=== PATIENT | female | born 1950 | race Caucasian/White ===

== ENCOUNTER 2016-12-17 | Outpatient (CLI) | payer MEDICARE, OTHER | END 2016-12-17 14:31 | disposition home or self-care (01) ==

== ENCOUNTER 2017-01-13 13:32 | Outpatient (CLI) | payer MEDICARE, OTHER | END 2017-01-13 13:33 | disposition home or self-care (01) | DX: Z51.5 Encounter for palliative care (principal); G89.3 Neoplasm related pain (acute) (chronic); R33.9 Retention of urine, unspecified; F33.9 Major depressive disorder, recurrent, unspecified; R53.83 Other fatigue; C21.0 Malignant neoplasm of anus, unspecified; C78.7 Secondary malignant neoplasm of liver and intrahepatic bile duct; C78.00 Secondary malignant neoplasm of unspecified lung; J01.90 Acute sinusitis, unspecified; R11.0 Nausea; R19.7 Diarrhea, unspecified; R06.02 Shortness of breath; F41.9 Anxiety disorder, unspecified; E03.9 Hypothyroidism, unspecified ==

== ENCOUNTER 2017-01-20 12:00 | Outpatient (CLI) | payer MEDICARE, OTHER | END 2017-01-20 12:01 | disposition home or self-care (01) | DX: Z51.5 Encounter for palliative care (principal); G89.3 Neoplasm related pain (acute) (chronic); K21.9 Gastro-esophageal reflux disease without esophagitis; R33.9 Retention of urine, unspecified; F32.9 Major depressive disorder, single episode, unspecified; R53.83 Other fatigue; C21.0 Malignant neoplasm of anus, unspecified; C78.7 Secondary malignant neoplasm of liver and intrahepatic bile duct; C78.00 Secondary malignant neoplasm of unspecified lung; C79.51 Secondary malignant neoplasm of bone; Z79.891 Long term (current) use of opiate analgesic; Z79.899 Other long term (current) drug therapy; E03.9 Hypothyroidism, unspecified; M19.90 Unspecified osteoarthritis, unspecified site; M54.30 Sciatica, unspecified side; R19.7 Diarrhea, unspecified ==

== ENCOUNTER 2017-01-27 14:15 | Outpatient (CLI) | payer MEDICARE, OTHER | END 2017-01-27 14:16 | disposition home or self-care (01) | DX: Z51.5 Encounter for palliative care (principal); G89.3 Neoplasm related pain (acute) (chronic); C21.0 Malignant neoplasm of anus, unspecified; C78.7 Secondary malignant neoplasm of liver and intrahepatic bile duct; C78.00 Secondary malignant neoplasm of unspecified lung; C79.51 Secondary malignant neoplasm of bone; M54.30 Sciatica, unspecified side; R33.9 Retention of urine, unspecified; F32.9 Major depressive disorder, single episode, unspecified; M48.07 Spinal stenosis, lumbosacral region; Z79.891 Long term (current) use of opiate analgesic; Z79.899 Other long term (current) drug therapy ==

== ENCOUNTER 2017-02-17 14:00 | Outpatient (CLI) | payer MEDICARE, OTHER | END 2017-02-17 14:01 | disposition home or self-care (01) | DX: Z51.5 Encounter for palliative care (principal); M54.9 Dorsalgia, unspecified; M84.48XD Pathological fracture, other site, subsequent encounter for fracture with routine healing; R33.9 Retention of urine, unspecified; F32.9 Major depressive disorder, single episode, unspecified; C21.0 Malignant neoplasm of anus, unspecified; C78.7 Secondary malignant neoplasm of liver and intrahepatic bile duct; C78.00 Secondary malignant neoplasm of unspecified lung; C79.51 Secondary malignant neoplasm of bone; Z79.891 Long term (current) use of opiate analgesic; R19.7 Diarrhea, unspecified; R53.83 Other fatigue; F41.9 Anxiety disorder, unspecified; M62.81 Muscle weakness (generalized); R42 Dizziness and giddiness; R41.3 Other amnesia; G62.0 Drug-induced polyneuropathy; Z79.899 Other long term (current) drug therapy; E03.9 Hypothyroidism, unspecified ==

== ENCOUNTER 2017-03-10 13:24 | Outpatient (CLI) | payer MEDICARE, OTHER ==
--- NOTE | 2017-03-26 22:43 | CONSULTATION NOTE ---
DATE OF CONSULTATION: 03/10/2017 00:00:00 REQUESTING PROVIDER: Dr. Bashir Roblero. TOPIC: Followup palliative care consult. Thank you, Dr. Roblero, for asking the palliative care consult service to be involved in the care of yo ur patient. I am seeing her in support for pain and symptom management and transitions of care. 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 She is currently receivi ng carboplatin and Taxol, for which she has had to have modified because of her ongoing pancytopenia. Today, she actually presents with a WBC of 1.8, neutrophil count of 1.1, RBCs 2.7, hemoglobin 9.3, a nd hematocrit 26.8. She does complain of some excessive fatigue. She reports she still had difficulty tolerating treatment. It lasted about 3-4 days and then started to feel a little bit better. She did go into town and was very active actually for the last several days and with some increased breathle ssness and shortness of breath with activity. She did need to rest quite frequently, was only able to go out once, which was somewhat disappointing to her. I did discuss this is a possibility that this may be a normal for her. She has had some intermittent nausea, some intermittent diarrhea for which s he takes Imodium and does end up with some pain and cramping and gaseous discomfort. SYMPTOM BURDEN: She does continue with some intermittent back pain, though this has been much better managed with the meloxicam 7.5 mg b.i.d. She reports she had forgotten to take it for a few days and noticed a significant difference. She has used intermittent oxycodone and she was wondering though if she has some pruritus this last time with that. Fatigue has been her most pressing symptom. She has tried to pace herself. When she has a good day, she is getting out. She has had poor appetite, though she has been weight neutral. She continues to eat. Shortness of breath is noted with increased activ ity. She is taking short walks. She does report intermittent depression, though it does not stay pers istent. Some anxiety with kind of a prolonged period of living with a serious illness and perceives h er quality of life as somewhat fair. BRIEF SOCIAL HISTORY: The patient is , does live alone. Her friends have been supporting her w [employer] rides and transportation. She has been independent in her own the ADLs, so I would put her at a [facility] performance status of 70%. REVIEW OF SYSTEMS ENT: She does still have some intermittent nasal congestion and intermittent vertigo. CARDIOVASCULAR: Denies chest pain. RESPIRATORY: Again, shortness of breath with activity or exertion. GASTROINTESTINAL: Continues with the intermittent diarrhea. Intermittent use of Imodium. She does get some pain and cramping with this. GENITOURINARY: She does cycle some retention symptoms, though denies increased signs or symptoms of U TI or progression. MUSCULOSKELETAL: Has generalized overall muscle aches, weakness. INTEGUMENTARY: Mild alopecia, dryness. NEUROLOGIC: Her baseline vertigo, increasing difficulties with short-term memory issues. 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 PSYCHIATRIC: As noted above. ENDOCRINE: History of hypothyroidism. HEMATOLOGIC/IMMUNOLOGIC: Remains pancytopenic on her current regimen. No recent infections. PHYSICAL EXAMINATION GENERAL APPEARANCE: Does appear quite fatigued, quite pale. EYES: Periorbital edema. ENT: Mucous and membranes are moist, no signs of candidiasis. NECK: Trachea midline, though she does have some limited range of motion. RESPIRATORY: Breath sounds are clear, slightly diminished in the right lower base. CARDIOVASCULAR: Pulse is 80. ABDOMEN: With hyperactive bowel tones, some tenderness, particularly in the right lower quadrant with palpation. No masses appreciated. SKIN: Color pale. EXTREMITIES: Trace pedal edema in her ankles. MEDICATION ALLERGIES: ERYTHROMYCIN BASED OINTMENTS. MEDICATION LIST 1. Potassium chloride extended release 10 mEq 4 tabs daily. 2. Meloxicam 7.5 mg b.i.d. 3. Levothyroxine 50 mcg daily. 4. Oxycodone 5 mg 1-2 tabs q.3h. p.r.n. breakthrough pain. 5. Lorazepam 0.5 mg 1-2 q.6. p.r.n. 6. Hydrochlorothiazide 25 mg half tab daily. 7. Omeprazole 20 mg 1-2 times a day. 8. Ritalin 5 mg 1/2 to 1 tab up to 2 times a day. 9. Ondansetron 8 mg 1 q.8h. 10. Imodium 2-4 mg after each loose stool up to 8 tabs, not to exceed 8 in 24 hours. IMPRESSION: This is a 67-year-old woman with stage IV squamous carcinoma of the anus with metastatic disease to lung, liver, and bone. She still struggles with the sequela of her chemotherapy and pancyt openia. She has had more fatigue. RECOMMENDATIONS/COUNSELING DONE 1. Back pain, multifactorial in origin. She does have a mild associated pathological vertebra jose erik fracture at L1 and has had radiation. She is doing quite well on her meloxicam. Has used oxycodo ne intermittently. The last time she was wondering if she was having more pruritus with that. She tree l let me know if it becomes problematic. We can transition her to hydromorphone. Previously, she had been on hydrocodone and found that too activating. 2. Hypokalemia. She is at 3.6. She is on potassium 4 tablets daily. We did discuss just adding high p otassium foods, reviewed a list of those, as far as improving her diet. 3. Hypocalcemia. She reports she has cut dairy products out of her diet secondary to diarrhea. She is at 8.1. She will go ahead and initiate calcium 1000 mg b.i.d., as well as add some calcium rich food s that she can tolerate better. 4. Depressive symptoms. Again, counseling regarding normalizing her feelings, relationships with kids , current setting of goals, and addressing concerns as far as planning for her future. 5. Advanced care planning. She does have a DPOA, Serena Rhodes, her [id number], , and se rachel ospina is her son, Narayan Rhodes, . She has not followed through as far as aditi miller an appointment with her [id number]. Continues to work at trying to "tidy things up," as she i s moving forward. Does normalize her current feelings as far as waiting for the other shoe to drop" a nd just questions of curiosity as she continues on her journey. TIME SPENT: 45 minutes with greater than 50% of this done in counseling and coordination of care, fol lowup on her labs, symptoms, and anticipatory guidance. JOB #: [id number] EXT JOB #:[id number]
== END 2017-03-10 13:25 | disposition home or self-care (01) ==
LOC: PC 13:24
PROVIDERS: ATTEND Nurse Practitioner Adult Health
DX: Z51.5 Encounter for palliative care (principal); M84.48XD Pathological fracture, other site, subsequent encounter for fracture with routine healing; E87.6 Hypokalemia; E83.51 Hypocalcemia; F32.9 Major depressive disorder, single episode, unspecified; C21.0 Malignant neoplasm of anus, unspecified; C78.7 Secondary malignant neoplasm of liver and intrahepatic bile duct; C78.00 Secondary malignant neoplasm of unspecified lung; C79.51 Secondary malignant neoplasm of bone; D61.818 Other pancytopenia; R53.83 Other fatigue; R06.09 Other forms of dyspnea; R11.0 Nausea; R19.7 Diarrhea, unspecified; E03.9 Hypothyroidism, unspecified; Z79.891 Long term (current) use of opiate analgesic
CPT/HCPCS: 99215

== ENCOUNTER 2017-05-07 13:54 | Outpatient (CLI) | payer MEDICARE, OTHER ==
[2017-05-07] MEDS ORDERED: IOPAMIDOL-300 100 ML VIAL IVP ONE (15:33)
[2017-05-07] MEDS ORDERED: IOPAMIDOL-300 50 ML VIAL PO ONE (15:33)
--- NOTE | 2017-05-09 07:02 | CT Report ---
CONTRAST-ENHANCED CT EXAM OF THE CHEST: 05/07/2017 CLINICAL HISTORY: Patient has stage IV anal cancer to the liver, lungs, and bones. TECHNIQUE: The patient received 100 mL of Isovue-300 as a contrast agent. A CAT scan of the chest w as done at 5 x 5 mm intervals in the axial, coronal, and sagittal reconstruction images. In accordance with CT protocol optimization, one or more of the following dose reduction techniques w ere utilized for this exam: automated exposure control, adjustment of mA and/or KV based on patient size, or use of iterative reconstructive technique. COMPARISON: 02/05/2017 FINDINGS: Mediastinum demonstrates a small right periaortic lymph node having a width of 0.7 cm. Th is is unchanged as compared to preceding exam and is nonspecific. Normal cardiac size is seen with c oronary artery calcification present in the left anterior descending coronary artery and in the right coronary artery. The amount of calcification present is of mild degree. Lung windows do show progression in previously noted metastatic lung nodules. In the right lung, the re are four nodules present. There is a 0.5 cm nodule in the apical posterior segment of the right u pper lobe. There is a 1 x 1 cm nodule in the superior segment of the right lower lobe. There is a 1 .6 x 1.5 cm nodule in the anterior segment of the right lower lobe, and there is a 1.2 cm nodule in t he medial segment of the right middle lobe. The nodule in the superior segment of the right lower lo be and anterior segment of the right lower lobe have increased in size since preceding exam when they measured 0.7 cm and 1.1 cm respectively. The nodule in the right middle lobe is unchanged. In the left lung, the single nodule in the left lower lobe has increased in size and now measures 1.8 x 1.5 cm as compared to 1.6 x 1.0 cm on preceding exam. Metastatic bone disease is once again seen in T12 and L1 vertebral bodies. The T12 vertebral body sh ows a general loss in trabecular pattern and relative radiolucency compared to the other vertebral constantin dies, and there is a large lytic lesion involving the L1 vertebral body. These findings are not sign ificantly changed as compared to preceding exam. IMPRESSION: 1. MILD PROGRESSION IN METASTATIC LUNG DISEASE IS SEEN COMPARED TO PRECEDING EXAM DATED 7. TWO OF THE FOUR NODULES IN THE RIGHT LUNG HAVE SHOWN MILD INCREASE IN SIZE AND THE ONE NODULE PRE SENT IN THE LEFT LUNG HAS SHOWN MILD INCREASE IN SIZE. SEE ABOVE DISCUSSION. 2. NO CHANGE IS DETECTED IN METASTATIC BONE DISEASE WITHIN T12 AND L1. JOB #: [id number] EXT JOB #:[id number]
--- NOTE | 2017-05-09 07:16 | CT Report ---
CT EXAM OF THE ABDOMEN AND PELVIS: 05/07/2017 CLINICAL HISTORY: Patient has anal cancer to liver, lungs, and bones. COMPARISON: 02/05/2017 TECHNIQUE: Patient received 100 mL of Isovue-370 as a contrast agent for both the chest and abdomen/pelvic CT. Axial, coronal, and sagittal reconstruction images were obtained at 5 x 5 mm intervals. In accordance with CT protocol optimization, one or more of the following dose reduction techniques were utilized for this exam: automated exposure control, adjustment of mA and/or KV based on patient size, or use of iterative reconstructive technique. FINDINGS: The liver demonstrates a 3.3 x 2.3 cm hypodense lesion in the left lobe of the liver, and a 4.8 x 3.0 cm hypodense lesion in the anterior aspect of the right lobe of the liver. These liver lesions are unchanged as compared to patient's preceding exam. Spleen is normal. Pancreas shows atrophy. Surgical clips are noted in the edd hepatis related to prior cholecystectomy. Common hepatic, common bile duct are mildly distended. This most likely is a normal variation post cholecystectomy. This distention most likely is nonobstructive. Periaortic and pericaval regions show no significant adenopathy. Adrenal glands appear normal. Kidneys show no significant abnormality. Ureters appear normal. Bladder shows some mild nonspecific wall thickening. This most likely is artifactual and produced by its only minimally distended state. The uterus and adnexa show no significant abnormality. Bowel gas pattern demonstrates an equivocal finding in regards to some mild wall thickening along a small section of the posterior aspect of the rectum. This may represent an artifact due to its nondistended state. Recommend clinical correlation. No significant diverticulosis is seen. Small bowel is normal. Bones once again demonstrate a prominent lytic lesion in L1 measuring 3.3 x 2.1 x 3.2 cm. Metastatic disease may be developing in T12, L2, L3, and L4 with relative loss of trabecular pattern in these vertebral bodies. This is also seen in the midline of sacrum. This relative loss of trabecular pattern may be a result of osteoporosis with another possibility being diffuse marrow infiltration. If indicated, other studies may include a PET/CT. No change is detected in this relative osteoporotic appearance since preceding exam dated . IMPRESSION: 1. NO SIGNIFICANT CHANGE IS NOTED COMPARED TO 02/05/2017, WITH STABLE METASTATIC LESIONS NOTED IN THE LIVER AND IN L1. 2. CONTINUED RELATIVE OSTEOPOROTIC TYPE APPEARANCE IS NOTED TO THE T12, L2, L3 , L4 VERTEBRAL BODIES AND ALSO IN THE MIDLINE OF THE SACRUM. THIS MAY REPRESENT TRUE OSTEOPOROSIS OR MARROW INFILTRATION RELATED TO PATIENT'S METASTATIC CANCER. IF INDICATED, ADDITIONAL STUDIES SUCH A PET/CT OR LUMBAR SPINE MRI COULD BE OBTAINED FOR FURTHER EVALUATION. JOB #: [id number] EXT JOB #: [id number] [facility]
== END 2017-05-07 13:55 | disposition home or self-care (01) ==
LOC: DI 13:54
PROVIDERS: ATTEND Internal Medicine Hematology & Oncology
DX: C21.0 Malignant neoplasm of anus, unspecified (principal); C78.7 Secondary malignant neoplasm of liver and intrahepatic bile duct; C78.02 Secondary malignant neoplasm of left lung; C78.01 Secondary malignant neoplasm of right lung; C79.51 Secondary malignant neoplasm of bone
CPT/HCPCS: 71260; 74177

== ENCOUNTER 2017-05-30 14:58 | Outpatient (CLI) | payer MEDICARE, OTHER ==
--- NOTE | 2017-06-01 10:20 | PROVIDER PROGRESS NOTE ---
Palliative Care Follow Up - Referral Referring Provider: Dr. 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 Her original diagnosis was in 12/1014. She has had chemotherapy and radiation, as will as a RFA to liver lesion 08/2015. She was noted to have lung mets 12/2015 with further treatment of second line therapy of carbo/taxol. She received radiation in 2015 to T12-L1 lesion related to increasing pain with some relief, though now is escalating again. Most recent scan show progressive disease noted in lung nodules done 05/07, as well increased concern of marrow infiltration in lumbar region and sacrum. Patient was seen at [facility] by Dr. Dong for joining a clinical trail for nivolumab vs nivolumab plus ipilimuab. She is very frustrated as she cannot join until her platlets are at or above 100,000, they are sitting at 50,000. She has consistently been low, last time she was above when she had a prolonged break for travel in November, of concern is the suggestion of increase bone marrow infiltration. Dr. Dong suggested she pursue nivolumab through other means if no eligible, she is wondering how long to wait. Worried not "doing anything" and the cancer is growing. Social History - Living Situation Living arrangement: At home Living Situation: Alone Support System: Patient has many caring friends, but no caregiver. Her daughter lives in [place] , son and his family [place]. Medications/Allergies - Medications Home Medications: Ambulatory Orders Medication Instructions Recorded Confirmed Levothyroxine [Synthroid] 50 mcg PO DAILY 04/10/15 06/01/17 Omeprazole 20 mg PO DAILY 04/10/15 06/01/17 Loperamide [Imodium] 2 mg PO Q3HR PRN 07/19/15 06/01/17 Ondansetron [Zofran Odt] 8 mg PO Q8H PRN 07/19/15 06/01/17 Lorazepam 1 - 2 tab PO Q6HR 10/24/15 06/01/17 Hydrochlorothiazide 25 mg PO DAILY 12/22/15 06/01/17 Loratadine 10 mg PO DAILY 12/22/15 06/01/17 Potassium Chloride 40 meq PO DAILY 12/22/15 06/01/17 Lidocaine/Prilocain 2.5% Cream 0.5 inch TOP ONCE PRN MDD Prior to 09/02/1606/01 [Emla 2.5% Cream] port access oxyCODONE [Roxicodone] 5 - 10 mg PO Q3HR PRN 10/28/16 06/01/17 Methylphenidate [Ritalin] 2.5 - 5 mg PO DAILY PRN 01/13/17 06/01/17 - Allergies Allergies/Adverse Reactions: Allergies Allergy/AdvReac Type Severity Reaction Status Date / Time erythromycin base Allergy Cramps Verified 12/22/15 03:19 Review of Systems - Constitutional Constitutional: reports: Fatigue, Weight gain - Eyes Eyes: denies: Vision loss - Ears, Nose & Throat Ears, Nose & Throat: reports: Vertigo (unchanged). denies: Hearing loss - Cardiovascular Cariovascular: reports: Decr. exercise tolerance. denies: Chest pain - Respiratory Respiratory: reports: SOB with exertion. denies: Cough, Sputum production, SOB at rest - Gastrointestinal Gastrointestinal: reports: Diarrhea (intermittent, less without chemotherapy), Bloating. denies: Rectal bleeding - Genitourinary Genitourinary: reports: Urgency (occasional), Incontinence (occasional) - Musculoskeletal Musculoskeletal: reports: Back pain - Integumentary Integumentary: reports: Hair changes (hair growing) - Neurological Neurological: reports: Headache (frontal h/a today), Memory problems (describes "chemo fog" no confusion, occ memory issues) - Psychiatric Psychiatric: reports: Depression, Anxiety - Endocrine Endocrine: denies: Intolerance to cold, Intolerance to heat - Hematologic/Lymphatic Hematologic/Lymphatic: reports: Anemia - All Other Systems All Other Systems: reports: Reviewed and negative Physical Examination - Vital Signs Pulse Rate: 71 Respiratory Rate: 18 Blood Pressure: 122/57 - Physical Exam General Appearance: positive: Anxious Eyes Bilateral: positive: Normal inspection ENT: positive: ENT inspection nml Neck: positive: Trachea midline, Stiff neck (limited range of motion, tense and shoulder tension) Respiratory: positive: Breath sounds nml Cardiovascular: positive: Regular rate & rhythm Abdomen: positive: Nml bowel sounds, No distention Skin: positive: Pallor, Dryness Extremities: positive: Full ROM, Pedal edema (slight) Neurologic/Psychiatric: positive: Oriented x3, Depressed mood/affect (tearful regarding the "waiting time" on plts to come up, hoping to get on clinical trial soon) Palliative Care - POLST Patient has POLST: No Pain: Pain worsening, Location (pain in back 03/29; had stopped Meloxicam earlier in week regarding patient's concern for plts; has pain and tension in neck and shoulders; presents today with headache pain (attributes to ritalin- when takes full tab can cause) and intermittent shooting pain from CIPN in feet ; using oxycodone 5 mg 1-2 tabs with some relief), Severity (reports headache pain 04/28) Drowsiness: Moderate (4-6) (reports fatigue has continued; ritalin helps and uses when has to do something; but finds activity tolerance diminishing; worried it is the cancer) Nausea: Mild (1-3) Anxiety: Moderate (4-6) (describes this waiting time and very difficult; interfering with sleep) Dyspnea: Mild (1-3) (mostly induced with activity) Anorexia: Moderate (4-6) Insomnia: Other (up at night to void; difficulty with anxiety going back to sleep) Feelings of wellbeing/Perceived Quality of Life: Worsening (worried about the future; feeling more vulnerable now; has had extended response to most treatments tried) Performance Status: Patient able to attend to ADLs, still driving. Starting to hire help for housekeeping etc. - Palliative Care Discussion: Experiencing some distress in the "waiting time". Hopeful that she will qualify for study. Reviewed study consent, understands side effects may be less than chemotherapy, anxious to get started. Will need liver biopsy once ready to proceed, and to receive her treatments at [facility]. Explored current level of distress, other stressors, and concerns. Hoping for some "more time", feels like she is wasting what she has currently, looked at some ways to mitigate stress and to set some goals. Impression and Recommendations - Palliative Care Impression: This is a afshin 67 year old woman with Stage IV anal cancer and metastatic disease, experiencing increasing symptom burden of pain/fatigue/depression and anxiety. Hoping to qualify for [facility] study, awaiting platelets to increases. Recommendations/Counseling Done: 1. Thrombocytopenia, most likely multifactorial in origin, has run low with ongoing chemotherapy since 12/2014. Now with some concern of bone infiltration on CT scan. Discussed what currently could do, will hold meloxicam though no direct correlation on counts, does have some impact on platelet function as precaution. No evidenced based studies on nutritional supplements, encouraged to focus on good nutrition, and adequate fluids including pomegrant juice. 2. Pain of neoplastic origin. Pain levels in back increasing, had been mitatigated over the last few months with the meloxicam 7.5 mg BID, and intermittent oxycodone mostly noted increased pain in afternoon. Will use ATC oxycodone 5 mg 4-5 times a day, if tolerates will restart Fentanyl 12 mcg patch , had been effective previously before radiation. Encouraged with increased neck and back tension to consider adding massage weekly. 3. Bowel issues. Reports intermittent constipation/diarrhea and increased gas pains. Inst to take simethicone BID, start her miralax 1/2 capful daily to counteract the increase in opioids and to hold if loose stools. 4. Depression. Counseling to normalize current feelings of loss and grief. Encouraged to make arrangements to see grandson, set goal. Iniitating conversation about future care/support. 5. Fatigue. Using Ritalin appropriately, encouraged to use 1/2 tab if headaches and repeat in couple of hours if needed. New Rx provided. 6.Stage Iv Anal cancer with mets. Will follow with Dr. Roblero regarding timing of initiating paperwork for nivolumab if needs to proceed off study. Staff though might take up to 3 weeks. Time Spent: 60 minutes with greater than 50% done in counseling regarding pain/anxiety/ depression and fatigue and anticipatory guidance.
== END 2017-05-30 14:59 | disposition home or self-care (01) ==
LOC: PC 14:58
PROVIDERS: ATTEND Nurse Practitioner Adult Health
DX: Z51.5 Encounter for palliative care (principal); C21.0 Malignant neoplasm of anus, unspecified; G89.3 Neoplasm related pain (acute) (chronic); C78.7 Secondary malignant neoplasm of liver and intrahepatic bile duct; C78.00 Secondary malignant neoplasm of unspecified lung; C79.51 Secondary malignant neoplasm of bone; R40.0 Somnolence; F41.9 Anxiety disorder, unspecified; F32.9 Major depressive disorder, single episode, unspecified; R63.0 Anorexia; D69.6 Thrombocytopenia, unspecified; Z79.891 Long term (current) use of opiate analgesic; K59.00 Constipation, unspecified; R19.7 Diarrhea, unspecified; R53.83 Other fatigue
CPT/HCPCS: 99215

== ENCOUNTER 2017-06-20 14:30 | Outpatient (CLI) | payer MEDICARE, OTHER ==
--- NOTE | 2017-06-20 17:36 | PROVIDER PROGRESS NOTE ---
Palliative Care Follow Up - Referral Referring Provider: Dr. 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 Her original diagnosis was in 12/2014. She has had a RFA to liver lesion 08/2015. She had XRT to T12-L1 region that finished in 09/2016. She was on observation and a chemotherapy break until 11/2016 when progression was noted in the lung. She has been low dose carboplatinum and Taxol, 2 weeks on and one-week off, due to bone marrow depression. Her most recent staging CT of 04/2017 unfortunately showed progression in her lung nodules. She was seen at [facility] to begin a clinical trial, unfortunately, her platelets have not recovered and she has not been a candidate up to this point. Given her anxiety and her continued goal to pursue treatment, she did pursue Opdiva off label (the phan drug in the trial) and started that today. She has been having increasing pain noted mostly her T12- L1 lesion area has needed increasing opioid support for this, she has been having increased fatigue, and pancytopenia. Her other presenting symptoms today is a supraclavicular mass, it appears to be new. It is firm slightly tender and of concern given her underlying disease process. Her pancytopenia with Hgb 9.1/ Hct 25.9/plts 38,000 is impacting her symptomatically at this time. She is more short of breath, with decreased activity tolerance, and feeling tired and occasional dizzyness. Social History - Living Situation Living arrangement: At home Living Situation: Alone Support System: She has two children, daughter in [place], son and his family in [place]. She has many friends but is dependent on herself for decisions and personal care Medications/Allergies - Medications Home Medications: Ambulatory Orders Medication Instructions Recorded Confirmed Levothyroxine [Synthroid] 50 mcg PO DAILY 04/10/15 06/01/17 Omeprazole 20 mg PO DAILY 04/10/15 06/01/17 Loperamide [Imodium] 2 mg PO Q3HR PRN 07/19/15 06/01/17 Ondansetron [Zofran Odt] 8 mg PO Q8H PRN 07/19/15 06/01/17 Lorazepam 0.5 tab PO Q6HR PRN 10/24/15 06/01/17 Hydrochlorothiazide 25 mg PO DAILY 12/22/15 06/01/17 Loratadine 10 mg PO DAILY 12/22/15 06/01/17 Potassium Chloride 40 meq PO DAILY 12/22/15 06/01/17 Lidocaine/Prilocain 2.5% Cream 0.5 inch TOP ONCE PRN MDD Prior to 09/02/1606/01 [Emla 2.5% Cream] port access oxyCODONE [Roxicodone] 5 - 10 mg PO Q4HR PRN 10/28/16 06/20/17 Methylphenidate [Ritalin] 2.5 - 5 mg PO BID MDD May repeat 01/13/17 06/20/17 in 2 hours Polyethylene Glycol 3350 [Miralax] 8.5 gm PO DAILY MDD hold for loose 06/03/17 06/03/17 stool Simethicone [Gas Relief] 80 mg PO BID 06/03/17 06/03/17 Fentanyl [Fentanyl 25mcg patch] 12 mcg TD Q72H 06/20/17 06/20/17 - Allergies Allergies/Adverse Reactions: Allergies Allergy/AdvReac Type Severity Reaction Status Date / Time erythromycin base Allergy Cramps Verified 12/22/15 03:19 Review of Systems - Constitutional Constitutional: reports: Fatigue, Weakness, Poor appetite - Eyes Eyes: reports: Blurred vision (no change from baseline) - Ears, Nose & Throat Ears, Nose & Throat: reports: Nasal congestion (occasional) - Cardiovascular Cariovascular: reports: Lightheadedness, Exertional dyspnea, Decr. exercise tolerance. denies: Chest pain, Edema - Respiratory Respiratory: reports: SOB with exertion. denies: Cough - Gastrointestinal Gastrointestinal: reports: Abdominal pain (describes an episode of "gallbladder " phantom pain; right upper quadrant radiating to epigastric area earlier this week), Constipation (alternating with diarrhea), Diarrhea (usually after eating) , Reflux/heartburn, Bloating ("gas pains" has been mitigated some with the simethacone). denies: Rectal bleeding, Bloody stools - Genitourinary Genitourinary: reports: Other (occasional difficult emptying her bladder) - Musculoskeletal Musculoskeletal: reports: Back pain, Muscle aches, Stiffness - Integumentary Integumentary: reports: Dryness, Other (reports increase bruising when "bumps" self) - Neurological Neurological: reports: General weakness, Headache, Dizziness - Psychiatric Psychiatric: reports: Anxiety (worried about increasing symptom burden) - Endocrine Endocrine: reports: Other (hypothyroidism) - Hematologic/Lymphatic Hematologic/Lymphatic: reports: Anemia, Other (pancytopenia continues to worsen) - All Other Systems All Other Systems: reports: Reviewed and negative Physical Examination - Vital Signs Pulse Rate: 87 Respiratory Rate: 18 Blood Pressure: 120/69 - Physical Exam General Appearance: positive: Anxious Eyes Bilateral: positive: Normal inspection, Conjunctivae nml. negative: No scleral icterus ENT: positive: No signs of dehydration, Other (right clavicale with increase mass/size; slightly tender to palpation; new finding and concern for patient; is fixed not moveable as in a node) Neck: positive: No JVD, Trachea midline, Swelling/bruising (scattered hematoma on left leg;) Respiratory: positive: No respiratory distress Cardiovascular: positive: Regular rate & rhythm Skin: positive: Dryness, Bruising Extremities: positive: Nml appearance, No pedal edema Neurologic/Psychiatric: positive: Oriented x3, Depressed mood/affect (reports very low on energy; spending more time "bonding with the couch") Palliative Care - POLST Patient has POLST: No Pain: Pain worsening, Location (mid thoracic area/lumbar;), Severity ( interfering with sleep/comfort; no exacerbating features; worse in the am; had not notice much improvement with fentanyl 12 mcg; moderate to severe in intensity) Drowsiness: Moderate (4-6) Nausea: Mild (1-3) Anxiety: Moderate (4-6) Dyspnea: Mild (1-3) Anorexia: Mild (1-3) Insomnia: Other (awakening more with pain/anxiety) Constipation: Yes, Opoid induced, Unmanaged (difficulty finding balance with basline diarrhea and now with opioid induced constipation) Feelings of wellbeing/Perceived Quality of Life: Worsening Performance Status: Patient still trying to take some short walks; little energy and SOB with activity; spending more time napping and less active - Palliative Care Discussion: Patient expressing anxiety over changes; starting new treatment today, encouraged to be "doing something"; recognizes decline and now with higher symptom burden having increased anxiety. Results - Lab Results Lab results reviewed: Yes Impression and Recommendations - Palliative Care Impression: This is a afshin 67 year old woman with Stage IV anal cancer with metastatic disease to lung, liver, and bones. Has been on a hiatus for treatment, had been hoping to join [facility] clinical trial of opdiva & opdiva/Yervoy, but pancytopenia has prevented her qualifying. She started the Opdiva today on compassionate use , will get every 2 weeks. She presents with new right supraclavicular mass and increasing pain, worsening fatigue, and anxiety. Recommendations/Counseling Done: 1. Pain of neoplastic origin. Pain levels continue to increase, worsening in lower back area, noted most severe in AM on awakening. Had started Fentanyl 12 mcg this week as instructed but has not decreased oxycodone use of about 6--8 tabs to address ATC. Counseling to add second 12mcg today, will give RX for fentanyl 25 mcg, counseling for safety, if too sedated inst. to remove, inst. to continue with oxycodone for break through pain. Can add back meloxicam 7.5 mg since did not impact platelets. 2. Constipation. Cont. with intermittent constipation/diarrhea. Simethicone has helped some with the gas. Will continue to titrate Miralax. 3. Panctyopenia. All her counts are decreasing, call to Dr. Roblero. not at threshold (though increasing symptoms) to transfuse. Unable to add to current labs, orders for Friday, will have T & C, as well as iron studies. 4. Right clavicular/supraclavicular mass, new. Discussed with oncologist, will evaluate with CT of neck with contrast per request. This will be next week, plan discussed with patient. 5. Fatigue, multifactorial in origin. New rx for ritalin provided, counseling for pacing activities with decreased counts. 6. Depression. Patient discouraged with diminishing quality of life and increased symptom burden. Counseling provided for support/coping and anxiety. Time Spent: 30 minutes with greater than 50% done in counseling for symptom management and coordination of care with oncologist/clinical staff.
== END 2017-06-20 14:31 | disposition home or self-care (01) ==
LOC: PC 14:30
PROVIDERS: ATTEND Nurse Practitioner Adult Health
DX: Z51.5 Encounter for palliative care (principal); G89.3 Neoplasm related pain (acute) (chronic); C21.0 Malignant neoplasm of anus, unspecified; C78.7 Secondary malignant neoplasm of liver and intrahepatic bile duct; C78.00 Secondary malignant neoplasm of unspecified lung; C79.51 Secondary malignant neoplasm of bone; R06.02 Shortness of breath; R53.83 Other fatigue; D61.818 Other pancytopenia; Z79.891 Long term (current) use of opiate analgesic; F41.9 Anxiety disorder, unspecified; F32.9 Major depressive disorder, single episode, unspecified; K59.00 Constipation, unspecified; R19.7 Diarrhea, unspecified
CPT/HCPCS: 99214

== ENCOUNTER 2017-06-25 15:45 | Outpatient (CLI) | payer MEDICARE, OTHER ==
--- NOTE | 2017-06-25 21:49 | PROVIDER PROGRESS NOTE ---
Palliative Care Follow Up - Referral Referring Provider: Dr. 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 She has been having pancytopenia that has continued, and today presents with increase shortness of breath, fatigue, some dizzyness, and feeling poorly. She did have a fever last night 99.7, but no cough/UTI or other than slight chill that resolved. She has swelling at the right clavicle that is of concern to her, tender to palpation, has CT scheduled after visit. She reports her back pain has responded well to the Fentanyl 25 mcg patch with little of oxycodone for breakthrough pain. She just started the Opdiva this last Friday, no untoward effects currently that she noted. She is anxious about her counts, and what to expect in the future as far as her prognosis. Social History - Living Situation Living arrangement: At home Living Situation: Alone Support System: Patient with daughter who just left on vacation for two weeks and son who lives in [facility]. Initiated conversation about identifying caregivers as she becomes more ill and starting to define a plan for EOL as things progress Medications/Allergies - Medications Home Medications: Ambulatory Orders Medication Instructions Recorded Confirmed Levothyroxine [Synthroid] 50 mcg PO DAILY 04/10/15 06/25/17 Omeprazole 20 mg PO DAILY 04/10/15 06/25/17 Loperamide [Imodium] 2 mg PO Q3HR PRN 07/19/15 06/25/17 Ondansetron [Zofran Odt] 8 mg PO Q8H PRN 07/19/15 06/25/17 Lorazepam 0.5 tab PO Q6HR PRN 10/24/15 06/25/17 Hydrochlorothiazide 25 mg PO DAILY 12/22/15 06/25/17 Loratadine 10 mg PO DAILY 12/22/15 06/25/17 Potassium Chloride 40 meq PO DAILY 12/22/15 06/25/17 Lidocaine/Prilocain 2.5% Cream 0.5 inch TOP ONCE PRN MDD Prior to 09/02/1606/25 [Emla 2.5% Cream] port access oxyCODONE [Roxicodone] 5 - 10 mg PO Q4HR PRN 10/28/16 06/25/17 Methylphenidate [Ritalin] 2.5 - 5 mg PO BID MDD May repeat 01/13/17 06/25/17 in 2 hours Polyethylene Glycol 3350 [Miralax] 8.5 gm PO DAILY MDD hold for loose 06/03/17 06/25/17 stool Simethicone [Gas Relief] 80 mg PO BID 06/03/17 06/25/17 Fentanyl [Fentanyl 25mcg patch] 25 each TD Q72H 06/25/17 06/25/17 - Allergies Allergies/Adverse Reactions: Allergies Allergy/AdvReac Type Severity Reaction Status Date / Time erythromycin base Allergy Cramps Verified 12/22/15 03:19 Review of Systems - Constitutional Constitutional: reports: Fatigue, Fever (last night 99.7; resolved this am; slight chills but not sustained; no s/s resp./sinus/uti), Chills - Eyes Eyes: reports: Vision loss - Ears, Nose & Throat Ears, Nose & Throat: reports: Vertigo - Cardiovascular Cariovascular: reports: Lightheadedness, Exertional dyspnea, Decr. exercise tolerance. denies: Chest pain - Respiratory Respiratory: reports: Cough (occasional), SOB at rest, SOB with exertion - Gastrointestinal Gastrointestinal: reports: Nausea, Reflux/heartburn, Bloating, Poor appetite - Genitourinary Genitourinary: reports: Urgency - Musculoskeletal Musculoskeletal: reports: Back pain (better on Fentanyl 25 mcg), Stiffness, Muscle weakness - Integumentary Integumentary: reports: Rash (actually increased petechai LE extremeties), Dryness, Hair changes (thinning alopecia from chemo) - Neurological Neurological: reports: General weakness, Dizziness, Memory problems - Psychiatric Psychiatric: reports: Depression (very tearful and concerned; feeling vulnerable ), Anxiety - Endocrine Endocrine: reports: Intolerance to cold - Hematologic/Lymphatic Hematologic/Lymphatic: reports: Anemia (counts continue to drop; just started on Opdiva Friday; HCT 23.7; plts 32,000) - All Other Systems All Other Systems: reports: Reviewed and negative Physical Examination - Vital Signs Temperature: 36.8 C Pulse Rate: 69 Respiratory Rate: 20 Blood Pressure: 127/63 - Physical Exam General Appearance: positive: Anxious Eyes Bilateral: positive: Conjunctivae nml, No scleral icterus ENT: positive: ENT inspection nml Neck: positive: Trachea midline, Swelling/bruising (swelling and tenderness over right clavicle area). negative: Lymphadenopathy (R), Lymphadenopathy (L) Respiratory: positive: Breath sounds nml Cardiovascular: positive: Regular rate & rhythm Abdomen: positive: Non-tender, Nml bowel sounds, No distention Skin: positive: Pallor, Dryness, Rash (petechai lower extremities, not noted other places) Extremities: positive: Nml appearance Neurologic/Psychiatric: positive: Oriented x3 Palliative Care - POLST Patient has POLST: No Pain: Pain improved, Location (back: worse in am and late afternoon) Drowsiness: Moderate (4-6), Comment (more fatigue and less energy) Nausea: None Anxiety: Mild (1-3) Dyspnea: Mild (1-3) Anorexia: Mild (1-3) Constipation: Yes, Opoid induced, Managed, Comment (struggles with alternating loose stools) Feelings of wellbeing/Perceived Quality of Life: Worsening Performance Status: Patient perceives less activity tolerance - Palliative Care Discussion: Patient discouraged feeling poorly, starting to consider implications for future planning and needed support. Initiated counseling on options, given [facility] as resource to explore, and agreed to continue to explore in future visits. She is hoping to get more information from Dr. Roblero when sees on Friday to help with planning and addressing concerns. Results - Lab Results Lab results reviewed: Yes Impression and Recommendations - Palliative Care Impression: This is a 67 year old woman with STage IV squamous carcinoma of the anus, with metastatic disease to liver, lung and bones. She presenting with continued decline of counts, now symptomatic with anemia, follow up with Dr. Roblero regarding plans, will go ahead and transfuse 2 units as planned. Recommendations/Counseling Done: 1. Pain of neoplastic origin, Fentanyl 25 mcg patch with better control. Needs new Rx for oxycodone for BTP. 2. Constipation, titrating medications appropriately. 3. Anemia with symptoms, ordered 2 units PRBCs for tomorrow, typed and crossed today, follow up with Dr. Roblero on continued pancytopenia concerns. 4. FUO, now resolved. Reviewed s/s of infection/sepsis to access emergent care. 5. Advanced care planning. Patient needs to define further plans and goals for end of life care, wanting to explore prognosis with oncologist next visit, supportive care provided. Time Spent: 30 minutes with greater than 50% done in counseling and coordination of care for anticipatory guidance and pain.
== END 2017-06-25 15:46 | disposition home or self-care (01) ==
LOC: PC 15:45
PROVIDERS: ATTEND Nurse Practitioner Adult Health
DX: Z51.5 Encounter for palliative care (principal); G89.3 Neoplasm related pain (acute) (chronic); C21.0 Malignant neoplasm of anus, unspecified; C78.7 Secondary malignant neoplasm of liver and intrahepatic bile duct; C78.00 Secondary malignant neoplasm of unspecified lung; C79.51 Secondary malignant neoplasm of bone; Z79.891 Long term (current) use of opiate analgesic; K59.00 Constipation, unspecified; D61.818 Other pancytopenia; R50.9 Fever, unspecified
CPT/HCPCS: 99214

== ENCOUNTER 2017-07-02 14:30 | Outpatient (CLI) | payer MEDICARE, OTHER ==
[2017-07-02 15:28] LABS: BILIRUBIN,URINE NEGATIVE (NEGATIVE)
[2017-07-02 15:38] LABS: UA CHARGE (STRIP ONLY) YES; UR CULTURE IF IND NOT INDICATED
== END 2017-07-02 14:31 | disposition home or self-care (01) ==
LOC: LAB 14:30
PROVIDERS: ATTEND Nurse Practitioner Adult Health
DX: R35.0 Frequency of micturition (principal)
CPT/HCPCS: 81001; 81003; 87086

== ENCOUNTER 2017-07-03 14:57 | Emergency (ER) | payer MEDICARE, OTHER ==
--- NOTE | 2017-07-03 15:47 | ED Physician Documentation ---
History of Present Illness - Stated complaint Stated Complaint: SHAKING,CHILLS - Chief complaint Chief Complaint: General - History obtained from History obtained from: Patient - History of Present Illness Timing: Other (67-year-old woman with anal cancer undergoing treatment, last infusion of the immunologic agent was 2 weeks ago. She has a port in place. For the last 2 weeks she has had shaking chills with low-grade fevers, maximum temperature has been 100.4 that was couple of nights ago. There is no specific infectious symptoms, no urinary complaints, cough, rash.) Review of Systems Ten Systems: 10 systems reviewed and negative Constitutional: reports: Fever, Chills, Fatigue Nose: denies: Rhinorrhea / runny nose, Congestion Throat: denies: Sore throat Cardiac: denies: Chest pain / pressure Respiratory: denies: Dyspnea, Cough GI: denies: Abdominal Pain PD PAST MEDICAL HISTORY - Past Medical History Cardiovascular: High cholesterol Respiratory: None Endocrine/Autoimmune: HyPOthyroidism GI: GERD, Colon polyps, Hemorrhoids : Chronic bladder infection HEENT: None Psych: None Musculoskeletal: Osteoarthritis Derm: None - Past Surgical History Past Surgical History: Yes General: Cholecystectomy - Present Medications Home Medications: Ambulatory Orders Medication Instructions Recorded Confirmed Levothyroxine [Synthroid] 50 mcg PO DAILY 04/10/15 07/03/17 Omeprazole 20 mg PO DAILY 04/10/15 07/03/17 Loperamide [Imodium] 2 mg PO Q3HR PRN 07/19/15 07/03/17 Ondansetron [Zofran Odt] 8 mg PO Q8H PRN 07/19/15 07/03/17 Lorazepam 0.5 tab PO Q6HR PRN 10/24/15 07/03/17 Hydrochlorothiazide 25 mg PO DAILY 12/22/15 07/03/17 Potassium Chloride 40 meq PO DAILY 12/22/15 07/03/17 Lidocaine/Prilocain 2.5% Cream 0.5 inch TOP ONCE PRN MDD Prior to 09/02/1607/03 [Emla 2.5% Cream] port access oxyCODONE [Roxicodone] 5 - 10 mg PO Q4HR PRN 10/28/16 07/03/17 Methylphenidate [Ritalin] 2.5 - 5 mg PO BID MDD May repeat 01/13/17 07/03/17 in 2 hours Polyethylene Glycol 3350 [Miralax] 8.5 gm PO DAILY MDD hold for loose 06/03/17 07/03/17 stool Simethicone [Gas Relief] 80 mg PO BID 06/03/17 07/03/17 Fentanyl [Fentanyl 25mcg patch] 25 each TD Q72H 06/25/17 07/03/17 Levofloxacin [Levaquin] 750 mg PO DAILY #7 tablet 07/03/17 - Allergies Allergies/Adverse Reactions: Allergies Allergy/AdvReac Type Severity Reaction Status Date / Time erythromycin base Allergy Cramps Verified 12/22/15 03:19 - Social History Does the pt smoke?: No Smoking Status: Never smoker Does the pt drink ETOH?: No Does the pt have substance abuse?: No - Immunizations Immunizations are current?: Yes - POLST Patient has POLST: No PD ED PE NORMAL - Vitals Vital signs reviewed: Yes - General General: Alert and oriented X 3, No acute distress - HEENT HEENT: PERRL, EOMI, Pharynx benign - Neck Neck: Supple, no meningeal sign, No bony TTP - Cardiac Cardiac: RRR, No murmur - Respiratory Respiratory: No respiratory distress, Clear bilaterally - Abdomen Abdomen: Non tender - Derm Derm: No rash - Neuro Neuro: Alert and oriented X 3, Normal speech - Psych Psych: Normal mood, Normal affect Results - Vitals Vitals: Vital Signs - 24 hr 07/03/17 07/03/17 15:10 16:57 Temperature 36.9 C 37.5 C Heart Rate 81 Respiratory 16 Rate Blood Pressure 134/75 H O2 Saturation 100 Oxygen O2 Source Room air - Labs Labs: Laboratory Tests 07/03/17 07/03/17 07/03/17 16:14 16:14 16:14 WBC 2.6 L RBC 3.18 L Hgb 10.2 L Hct 30.2 L MCV 94.9 MCH 32.1 H MCHC 33.8 RDW 14.7 Plt Count 25 L* MPV 7.4 L Neut # 2.0 Lymph # 0.3 L [place] # 0.2 Eos # 0.0 Baso # 0.0 Absolute Nucleated RBC 0.00 Band Neuts % (Manual) OPTICAL FABRICATOR Nucleated RBCs 0.0 Platelet Estimate DECREASED (<130,000) Platelet Morphology NORMAL APPEARANCE Sodium 137 Potassium 3.4 L Chloride 103 Carbon Dioxide 26 Anion Gap 8.0 BUN 10 Creatinine 0.6 Estimated GFR (MDRD) 100 Glucose 102 H Lactic Acid 0.9 Calcium 8.6 Total Bilirubin 0.8 AST 41 ALT 30 Alkaline Phosphatase 101 Total Protein 6.8 Albumin 3.5 Globulin 3.3 Albumin/Globulin Ratio 1.1 Lipase 17 L - Rads (name of study) 2 view chest x-ray Radiology: EMP read contemporaneously (Multiple bilateral pulmonary nodules likely malignant disease.) PD MEDICAL DECISION MAKING - ED course ED course: 67-year-old woman presents with almost subacute fevers and chills without source , chest x-ray is concerning for infection but more likely metastatic disease. She is not neutropenic at this juncture. Case was discussed with Dr. Zhu by phone, on-call for her oncologist who agreed with starting an antibiotic but unlikely for infection and she will follow-up in the clinic tomorrow, he sees no contraindication to her getting her immunologic therapy tomorrow. Departure - Departure Disposition: Home, Self Care Clinical Impression: Lymphopenia, Anal cancer Fever Qualifiers: Fever type: due to other condition Qualified Code(s): R50.81 - Fever presenting with conditions classified elsewhere Condition: Good Record reviewed to determine appropriate education?: Yes Instructions: ED Fever Unconf Cause Prescriptions: Levofloxacin [Levaquin] 750 mg PO DAILY #7 tablet Comments: Follow-up in the [facility] clinic tomorrow. Return if worse. Your blood pressure was elevated today on check into the emergency department. This does not mean that you have hypertension, it is a common phenomenon to come to the emergency department and have elevated blood pressure. I recommend that she see your primary care physician within the week to have it rechecked when you are feeling better.
--- NOTE | 2017-07-03 16:26 | XRAY Preliminary Report ---
Exam: XR Chest 2 View PA/LAT IMPRESSION: 1. Bilateral multiple pulmonary nodules. In the setting of a malignancy without recent priors. The di fferential diagnosis would favor pulmonary metastatic disease but would not exclude a nodular pneumon ia. [facility] SITE ID: [id number]
--- NOTE | 2017-07-03 16:29 | XRAY Report ---
EXAM: CHEST RADIOGRAPHY EXAM DATE: 07/03/2017 04:04 PM. CLINICAL HISTORY: Fevers. COMPARISON: 03/21/2016. TECHNIQUE: 2 views. FINDINGS: Lungs/Pleura: There are multiple pulmonary nodules. There is a right basilar 818 mm nodule. There is a left infrahilar retrocardiac 20 mm nodule. Lung volumes are normal. Possible nodule seen in the rig ht mid lung superimposed over the Port-A-Cath. Mediastinum: The heart size is normal. There is a right-sided Port-A-Cath with tip at the mid SVC. Other: None. IMPRESSION: 1. Bilateral multiple pulmonary nodules. In the setting of a malignancy without recent priors. The di fferential diagnosis would favor pulmonary metastatic disease but would not exclude a nodular pneumon ia. [facility] Referring Provider Line: [phone] SITE ID: [id number]
[2017-07-03 16:31] LABS: BASOPHILS % (AUTO) 0.2 %; EOSINOPHILS % (AUTO) 0.4 %; HCT - HEMATOCRIT 30.2 % (37.0-47.0); HGB - HEMOGLOBIN 10.2 g/dL (12.0-16.0); LYMPHOCYTES # (AUTO) 0.3 10^3/uL (1.5-3.5); LYMPHOCYTES % (AUTO) 12.9 %; MEAN CORPUSCULAR HEMOGLOBIN 32.1 pg (27.0-31.0); MEAN CORPUSCULAR HGB CONC 33.8 g/dL (32.0-36.0); MEAN CORPUSCULAR VOLUME 94.9 fL (81.0-99.0); MEAN PLATELET VOLUME 7.4 fL (7.9-10.8); MONOCYTES # (AUTO) 0.2 10^3/uL (0.0-1.0); NEUTROPHILS % (AUTO) 77.5 %; RED BLOOD COUNT 3.18 10^6/uL (4.20-5.40); RED CELL DISTRIBUTION WIDTH 14.7 % (12.0-15.0); UNCORRECTED WHITE BLOOD COUNT 2.6 x10^3/uL; WHITE BLOOD COUNT 2.6 x10^3/uL (4.8-10.8)
[2017-07-03 16:42] LABS: ALBUMIN/GLOBULIN RATIO 1.1 (1.0-2.2); BILIRUBIN,TOTAL 0.8 mg/dL (0.2-1.0); CALCIUM 8.6 mg/dL (8.5-10.3); CREATININE 0.6 mg/dL (0.4-1.0); POTASSIUM 3.4 mmol/L (3.5-5.0); TOTAL PROTEIN 6.8 g/dL (6.7-8.2)
[2017-07-03 17:06] LABS: NP AUTO DIFFERENTIAL? NO; NP MAN DIFFERENTIAL? YES
[2017-07-03 17:07] LABS: PLATELET ESTIMATE, MANUAL DECREASED (<130,000) (NORMAL); PLATELET MORPHOLOGY NORMAL APPEARANCE (NORMAL)
[2017-07-03] MEDS ORDERED: levoFLOXacin 250 MG TABLET PO STA (17:18)
[2017-07-03] MEDS ORDERED: levoFLOXacin 250 MG TABLET ONE (17:37)
[2017-07-03 18:08] VITALS: BP 154/67
== END 2017-07-03 18:14 | disposition home or self-care (01) ==
LOC: ED 14:57
DX: D72.810 Lymphocytopenia (principal); C21.0 Malignant neoplasm of anus, unspecified; R50.81 Fever presenting with conditions classified elsewhere; R03.0 Elevated blood-pressure reading, without diagnosis of hypertension; E03.9 Hypothyroidism, unspecified
CPT/HCPCS: 36415; 71020; 80053; 83605; 83690; 85025; 87040; 96374; 99283; A9270

== ENCOUNTER 2017-07-04 14:27 | Outpatient (CLI) | payer MEDICARE, OTHER ==
--- NOTE | 2017-07-04 18:28 | PROVIDER PROGRESS NOTE ---
Palliative Care Follow Up - Referral Referring Provider: Dr. 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 She continues to experience pancytopenia, most recently received a blood transfusion with some improvement of her symptoms of fatigue, shortness of breath, and dizziness. Unfortunately she continues to feel poorly through the week, with evening temps as high as 100.4, and some chills, the chills had exacerbated 07/02 at night. Had made arrangements with consult with Dr. Leos for an outpatient workup. Had tested her urine, had been negative from the day before. Unfortunately on 07/03 when she arrvied at the [facility] [place] blood cultures and chest x-ray, she arrived with shaking chills dizziness and feeling quite poorly. Given the fact she lived alone and the severity of her symptoms the decision was made to send her to the ED for an expedited workup. I am seeing her today, there has been no obvious sign of infection, her chest x-ray was the only possibility, but most likely due to metastatic disease. She was started go on Levaquin 750 mg daily but continues to feel quite poorly today. She is receiving her up Opdiva, and is feeling somewhat overwhelmed with the realization that though were hoping for the best, and a good response, may need to start preparing for her decline. Her pain continues to escalate, she is on Fentanyl 25 mcg patch, but is having more pain with weightbearing, relief when lays flat, and more difficulty with the pain interfering with her function. It is located at her L1 lesion, and more generalized to the area of her lower lumbar spine. Social History - Living Situation Living arrangement: At home Living Situation: Alone Support System: Her son and his family live in [facility], daughter in [place] but currently on vacation. She is here with her friend, and has many supportive friends, but in exploring future options no identified primary caregiver. Medications/Allergies - Medications Home Medications: Ambulatory Orders Medication Instructions Recorded Confirmed Levothyroxine [Synthroid] 50 mcg PO DAILY 04/10/15 07/06/17 Omeprazole 20 mg PO DAILY 04/10/15 07/06/17 Loperamide [Imodium] 2 mg PO Q3HR PRN 07/19/15 07/06/17 Ondansetron [Zofran Odt] 8 mg PO Q8H PRN 07/19/15 07/06/17 Lorazepam 0.5 tab PO Q6HR PRN 10/24/15 07/06/17 Hydrochlorothiazide 25 mg PO DAILY 12/22/15 07/06/17 Potassium Chloride 40 meq PO DAILY 12/22/15 07/06/17 Lidocaine/Prilocain 2.5% Cream 0.5 inch TOP ONCE PRN MDD Prior to 09/02/1607/06 [Emla 2.5% Cream] port access oxyCODONE [Roxicodone] 5 - 10 mg PO Q4HR PRN 10/28/16 07/06/17 Methylphenidate [Ritalin] 2.5 - 5 mg PO BID MDD May repeat 01/13/17 07/06/17 in 2 hours Polyethylene Glycol 3350 [Miralax] 8.5 gm PO DAILY MDD hold for loose 06/03/17 07/06/17 stool Simethicone [Gas Relief] 80 mg PO BID 06/03/17 07/06/17 Fentanyl [Fentanyl 25mcg patch] 37 each TD Q72H 06/25/17 07/06/17 Levofloxacin [Levaquin] 750 mg PO DAILY #7 tablet 07/03/17 07/06/17 Mecobalamin [B-12] 1,000 mg PO DAILY 07/06/17 07/06/17 - Allergies Allergies/Adverse Reactions: Allergies Allergy/AdvReac Type Severity Reaction Status Date / Time erythromycin base Allergy Cramps Verified 12/22/15 03:19 Review of Systems - Constitutional Constitutional: reports: Fatigue, Fever, Chills, Malaise, Diaphoresis - Cardiovascular Cariovascular: reports: Lightheadedness, Exertional dyspnea, Decr. exercise tolerance. denies: Chest pain - Respiratory Respiratory: reports: SOB with exertion. denies: Cough, SOB at rest - Gastrointestinal Gastrointestinal: reports: Reflux/heartburn. denies: Rectal bleeding - Genitourinary Genitourinary: reports: Frequency - Musculoskeletal Musculoskeletal: reports: Muscle pain, Back pain, Muscle aches, Stiffness, Muscle weakness - Integumentary Integumentary: denies: Rash, Pruritis - Neurological Neurological: reports: General weakness, Memory problems (feeling a little more difficulty in tracking) - Psychiatric Psychiatric: reports: Depression, Anxiety - Endocrine Endocrine: reports: Intolerance to cold - Hematologic/Lymphatic Hematologic/Lymphatic: reports: Anemia, Petechiae, Other (got neutropenic work up in ED yesterday; no results yet) - All Other Systems All Other Systems: reports: Reviewed and negative Physical Examination - Vital Signs Temperature: 37 C Pulse Rate: 82 Respiratory Rate: 16 Blood Pressure: 116/73 - Physical Exam General Appearance: positive: Mild distress, Anxious Eyes Bilateral: negative: No scleral icterus ENT: positive: No signs of dehydration Neck: positive: Trachea midline, Other (swelling right clavicle area improved; some tenderness with palpation around port/clavicle area) Respiratory: positive: Breath sounds nml. negative: Wheezes, Rales, Rhonchi Cardiovascular: positive: Regular rate & rhythm Abdomen: positive: No distention Skin: positive: Pallor, Dryness Extremities: positive: Pedal edema (mild), Other (weak with ambulation) Neurologic/Psychiatric: positive: Oriented x3, Weakness, Depressed mood/affect Palliative Care - POLST Patient has POLST: No Pain: Pain worsening, Location (lumbar area), Severity (mod/severe), Pattern ( worsening with weight bearing and up longer; relief when lays down; using oxycodone with some relief) Drowsiness: Mild (1-3) (feeling much more fatigued though improved with transfusion) Nausea: None Anxiety: Mild (1-3) Dyspnea: Mild (1-3) Anorexia: Mild (1-3) Insomnia: Sleeps poorly Feelings of wellbeing/Perceived Quality of Life: Worsening Performance Status: Patient still able to attend to ADLs but less energy; has housekeeping but feeling vulnerable by herself; does have lifeline - Palliative Care Discussion: Surrogate decision maker-Chandrika Rhodes [place] [phone].Patient express tearfulness and frustration regarding ongoing temperatures, functional decline, and increasing pain. No identifiable source of infection to ED evaluation was made. Awaiting the final results on cultures. She is feeling much more follicle , much more week, and realizing is going to be further assistance in the future. We did discuss in the bigger picture plan, her hope for end-of-life care is to happen in her home with hospice support. At this point in time, there is no identify caregiver, and she is going to need increased support and monitoring with her increasing symptom burden. Counseling was provided regarding communication with family members, anticipatory guidance, and the need to address the POLST. She does admit to having increased difficulty tracking everything, and feeling much more depressed. Impression and Recommendations - Palliative Care Impression: This is a 67-year-old woman with stage IV squamous carcinoma of the anus, with metastatic disease to the liver, lung, and bones. She presents with pancytopenia , low grade fevers with unknown etiology, and overall feeling more poorly. She is currently been started on Levaquin, she presents with increasing pain, on more difficulty with activity tolerance. Recommendations/Counseling Done: 1. Pain of neoplastic origin. Is currently on fentanyl 25 mcg q. 72 hours, with oxycodone 2 tabs when necessary breakthrough pain. She is having increased pain located at the L1 bony lesion as well as in her lower back overall. She does get relief with laying down, and she does have increased pain particularly through the end of the day with increased activity. Counseling done in weighing benefits and burdens of deep increasing her Fentanyl, agreement was to add another 12 mcg patch. Patient does live alone in the context of safety, she will set up with a plan with her friends to check on her frequently through the day. If she feels too sedated or confused, she's been instructed to remove the 12 mcg patch. 2. FUO, continued and identified source. She has been started on anabiotic. Will also add Florastor 250 mg twice a day x14 days. Continues to have intermittent constipation alternating with diarrhea. She is titrating her bowel meds appropriately. 3. Advanced care planning. Counseling regarding patient's goals of care, options regarding the continuum of care for end-of-life. Reviewed the need to identify a primary caregiver, her primary caregiver plan. Introduced and need for POLST, initiate conversation regarding weighing benefits and burdens for support and filling it out. Patient likes to process, she will review the forms and we will address at our next visit. Encouraged to followup with her children , as far as communication expressing that she needs and most hopes for. She is very fearful of being a burden. Time Spent: 45 minutes with greater than 50% done in counseling for anticipatory guidance; pain management; communication with family and s/s to access acute care
== END 2017-07-04 14:28 | disposition home or self-care (01) ==
LOC: PC 14:27
PROVIDERS: ATTEND Nurse Practitioner Adult Health
DX: Z51.5 Encounter for palliative care (principal); G89.3 Neoplasm related pain (acute) (chronic); C21.0 Malignant neoplasm of anus, unspecified; C78.7 Secondary malignant neoplasm of liver and intrahepatic bile duct; C78.00 Secondary malignant neoplasm of unspecified lung; C79.51 Secondary malignant neoplasm of bone; Z79.891 Long term (current) use of opiate analgesic; R50.9 Fever, unspecified; K59.00 Constipation, unspecified; R19.7 Diarrhea, unspecified; D61.818 Other pancytopenia
CPT/HCPCS: 99215

== ENCOUNTER 2017-07-17 11:02 | Outpatient (CLI) | payer MEDICARE, OTHER ==
--- NOTE | 2017-07-17 17:13 | CONSULTATION NOTE ---
Palliative Care Follow Up - Referral Referring Provider: Dr. 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 She is been experiencing exacerbation of her back pain. As of 2 weeks ago she was on fentanyl 37 mcg to the last couple weeks we have been titrating up today she presents at 62 mcg of fentanyl without relief. She has still continue to take oxycodone 10-15 mg every 2-3 hours. Her pain is exacerbated with standing, movement, and is having difficulty finding a comfortable position. She is getting quite exhausted and fatigued by the pain and is hoping to find underlying etiology as well as some pain relief today. She has also continued to have evening temps around 99.4, she is having some sweats. She did finish her Levaquin without any improvement with that. It is most likely attributed to her up diva are her liver metastases. She did have support over the last 10 days, her [id number] and grandson came, she found this is a good distraction and quite supportive. At baseline she usually lives at home alone, and there is been concerned about her increasing functional decline, increased forgetfulness, and risk for falls. She also presents today with increased fatigue and dizziness. Suspected her counts were low. Her counts did come back in the middle of our visit. Her hematocrit was 22.4, 7, hemoglobin 7.9, and WBC 1.9, and of concern was her platelets was at 12,000. She is quite tearful, I did follow up with Dr. Webster, Dr. Roblero is on vacation about whether to continue with the of the though she felt like there was no contraindication and the counts were not to be attributed to her Opdivo. She has completed 2 rounds. She is having some breathlessness, she did stand for orthostatic blood pressures, and got quite dizzy. In weighing the benefits and burdens we did discuss going forward with a transfusion today. Her blood pressure was 115/64. Pulse 77 but was standing her pulse jumped up to about 120. She was unable to tolerate a second blood pressure in standing. Her appetite is diminishing and she has had some weight loss though we did not weigh her on the way in. I am she is here today with her friend Cee to talk about the larger plan. Patient is quite tearful and feeling quite vulnerable. Social History - Living Situation Living arrangement: At home Living Situation: Alone Support System: Patient does have a very good friend Cee, who lives next door, who is a nurse. She also has a very good friend Kaleigh who is also a nurse and both are very concerned about how best to manage this next phase of her journey. She does have a daughter, who is still working, is it coming to spend the weekend and provide some support though most likely will not be able to be a primary caregiver. She did feel somewhat reassured when her son and [id number] visited that they would be willing to come back in a moments notice to provide support as needed. Cee is taking the lead to help with facilitating more support for her. Patient is hoping to remain as independent as long as possible. Medications/Allergies - Medications Home Medications: Ambulatory Orders Medication Instructions Recorded Confirmed Levothyroxine [Synthroid] 50 mcg PO DAILY 04/10/15 07/17/17 Omeprazole 20 mg PO DAILY 04/10/15 07/17/17 Loperamide [Imodium] 2 mg PO Q3HR PRN 07/19/15 07/17/17 Ondansetron [Zofran Odt] 8 mg PO Q8H PRN 07/19/15 07/17/17 Lorazepam 0.5 tab PO Q6HR PRN 10/24/15 07/17/17 Hydrochlorothiazide 25 mg PO DAILY 12/22/15 07/17/17 Potassium Chloride 40 meq PO DAILY 12/22/15 07/17/17 Lidocaine/Prilocain 2.5% Cream 0.5 inch TOP ONCE PRN MDD Prior to 09/02/1607/17 [Emla 2.5% Cream] port access oxyCODONE [Roxicodone] 10 - 15 mg PO Q4HR PRN 10/28/16 07/17/17 Methylphenidate [Ritalin] 2.5 - 5 mg PO BID MDD May repeat 01/13/17 07/17/17 in 2 hours Polyethylene Glycol 3350 [Miralax] 17 gm PO DAILY MDD hold for loose 06/03/17 stool Simethicone [Gas Relief] 80 mg PO BID PRN 06/03/17 07/17/17 Fentanyl [Fentanyl 25mcg patch] 75 each TD Q72H 06/25/17 07/17/17 Mecobalamin [B-12] 1,000 mg PO DAILY 07/06/17 07/17/17 - Allergies Allergies/Adverse Reactions: Allergies Allergy/AdvReac Type Severity Reaction Status Date / Time erythromycin base Allergy Cramps Verified 12/22/15 03:19 Review of Systems - Constitutional Constitutional: reports: Fatigue, Fever (remains low grade, has not let up), Poor appetite, Night sweats, Weight loss - Eyes Eyes: reports: Corrective lenses - Ears, Nose & Throat Ears, Nose & Throat: reports: Vertigo. denies: Nosebleeds, Bleeding gums - Cardiovascular Cardiovascular: reports: Exertional dyspnea, Decr. exercise tolerance - Respiratory Respiratory: reports: SOB with exertion. denies: Cough, Wheezing - Gastrointestinal Gastrointestinal: reports: Constipation, Diarrhea, Nausea, Poor appetite, Early satiety. denies: Rectal bleeding - Genitourinary Genitourinary: reports: Incontinence (mild at times; no increase). denies: Dysuria - Musculoskeletal Musculoskeletal: reports: Back pain (see PAIN), Stiffness - Integumentary Integumentary: reports: Other (petechaie LE) - Neurological Neurological: reports: General weakness, Dizziness, Memory problems - Psychiatric Psychiatric: reports: Depression, Anxiety - Endocrine Endocrine: reports: Hypothyroidism - Hematologic/Lymphatic Hematologic/Lymphatic: reports: Anemia - All Other Systems All Other Systems: reports: Reviewed and negative Physical Exam - Vital Signs Pulse Rate: 77 (120 with standing) Respiratory Rate: 18 Blood Pressure: 115/74 (unable to tolerate standing) - Physical Exam General Appearance: positive: Mild distress, Anxious Eyes Bilateral: positive: Normal inspection ENT: positive: Pharynx nml Neck: positive: Trachea midline Cardiovascular: positive: Regular rate & rhythm Respiratory: positive: Breath sounds nml, Diminished in bases. negative: Wheezes, Rales, Rhonchi Abdomen: positive: Non-tender, Soft Skin: positive: Pallor, Other (petechaie scattered up past kneew/no other signs of bleeding) Extremities: positive: No pedal edema Neurologic/Psychiatric: positive: Oriented x3, Depressed mood/affect Palliative Care - POLST Patient has POLST: Yes POLST Status: DNR, Limited Interventions Pain: Pain worsening, Location (mid/lower lumbar area; right sacral buttock area ), Severity (increasing in severity 6/10 at time of visit; up to 10/10 unable to stand without resting; have been increasing Fentanyl through week without "catching up" using oxycodone 10-15 mg every 3-4 hours to be tolerable) Tiredness/Fatigue: Severe (7-10) Drowsiness/Sedation: Mild (1-3) Nausea: Mild (1-3) Depression: Moderate (4-6) Anxiety: Moderate (4-6) Dyspnea: Mild (1-3) Anorexia: Moderate (4-6) Sleep: Variable sleep pattern Constipation: Yes, Opoid induced (had been better until yesterday some loose;), Managed Feelings of wellbeing/Perceived Quality of Life: Poor, Worsening Performance Status: Patient functional decline over the week, this is related somewhat to fatigue, which should be certainly attributed to her low hematocrit, she is also experiencing limitations related to her pain. She does spend most the time on the couch or in bed. I would put her at a PPS of 40% - Palliative Care Discussion: Patient very anxious with pancytopenia, there really is no underlying etiology of this. It certainly does complicate her picture as far as her ongoing decline. She does recognize that we are in the last stage of her trajectory, she is quite tearful regarding this. We did go ahead and complete her POLST. With her goals being to focus on quality of life, she will can continue to receive treatment as long as appropriate, and end-of-life she does want to have a at home with hospice. She does have many friends and family as far as wanting to support her in her goals. But she does not have an identified primary caregiver. Her pulse to reads do and DNA are/allow natural limited interventions, as well as determined use or limitation of antibiotics and infection occurs with comfort as the goal and no medically assisted nutrition. The more complicated conversation actually was around her DPO A, originally she had picked her [id number], though she does work and is over in [employer]. Did encourage her to consider 1 of her friends closer to home, in conjunction with her children, she will have a conversation with her family and friends regarding who may be the primary as well as how best to manage if she were unable to make decisions for herself. [facility] visit tomorrow. We did spend some time counseling regarding her feelings of vulnerability and feeling overwhelmed with these latest developments. She did very much enjoying her visit with her new grandson, that this also was painfully suite as she knows that she will be leaving him behind. They did make some videos and she is continuing to think about Legacy work for her one and only grandbaby. Counseling related to her depression and normalizing her feelings of grief and loss. 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 She is having acute exacerbation of her pain, am concerned about cord compression as well as pathological fracture. She also presents with pancytopenia, concerned about her continuing decreasing platelets at 12,000 today, as well as her ongoing functional decline. Patient feeling very vulnerable and concerned as she does understand the seriousness of her illness and the implications regarding this. Recommendations/Counseling Done: 1. Pain of neoplastic origin. We will go ahead and titrate her fentanyl up to 75 mcg. Am hesitant to go much quicker, as we have increased every 3 or 4 days as it is. She is using her oxycodone for breakthrough pain appropriately, new prescription was provided for both 75 mcg and 25 mcg fentanyl patches. Will titrate up to 100 mcg on Friday if she is still having acute pain. Will go ahead and order sacral coccyx MRI as well as a lumbar MRI. She did in January get relief with radiation to her L1 lesion. I will follow up with Dr. Braydon Grant after these are available to see if this might be something that might be an intervention that might help her. She is willing to consider pursuing this. 2. Pancytopenia. I did speak with Dr. Webster regarding receiving Opdivo tomorrow. Dr. Roblero is on vacation, and she did feel that it was not that up develop but continued bone marrow failure and to go ahead and treat. Patient is symptomatic today will go ahead and order 2 units of packed red blood cells. Patient currently just has some petechiae in her lower extremities she has been instructed with any signs or symptoms of bleeding to access the emergency room. Will go ahead and check a platelet count with her CBC on Friday. And transfuse as indicated. 3 functional decline. Cee her friend was present at the time of visit, they will obtain a walker for her. Did discuss my concerns about falls particularly with her back concerned about a pathologic fracture as well as with her platelets intracranial bleed. She did agree given the seriousness of her current condition to use her walker in her home setting as she does have tile floor. She is also having her daughter stay with her this weekend. #4 advanced care planning. We did discuss and complete her POLST, much discussion regarding who her DPOA should be, and they will complete that discussion with her children this evening and complete the form. Anticipatory guidance was provided to the and trajectory of her disease. Counseling for grief and loss as well as her depression. Time Spent: 90 minutes with greater than 50% of this done in counseling regarding current disease status, opioid management and use, advanced care planning and anticipatory guidance. Coordination of care with oncologist and clinical staff to facilitate care plan.
== END 2017-07-17 11:03 | disposition home or self-care (01) ==
LOC: PC 11:02
PROVIDERS: ATTEND Nurse Practitioner Adult Health
DX: Z51.5 Encounter for palliative care (principal); G89.3 Neoplasm related pain (acute) (chronic); C21.0 Malignant neoplasm of anus, unspecified; C78.7 Secondary malignant neoplasm of liver and intrahepatic bile duct; C78.00 Secondary malignant neoplasm of unspecified lung; C79.51 Secondary malignant neoplasm of bone; D61.818 Other pancytopenia; R42 Dizziness and giddiness; F32.9 Major depressive disorder, single episode, unspecified; F43.20 Adjustment disorder, unspecified; R53.83 Other fatigue; R06.02 Shortness of breath; F98.0 Enuresis not due to a substance or known physiological condition; Z91.81 History of falling; E03.9 Hypothyroidism, unspecified; K59.03 Drug induced constipation; T40.605D Adverse effect of unspecified narcotics, subsequent encounter; Z79.891 Long term (current) use of opiate analgesic; Z79.899 Other long term (current) drug therapy; Z66 Do not resuscitate
CPT/HCPCS: 99215

== ENCOUNTER 2017-07-23 09:20 | Outpatient (CLI) | payer MEDICARE, OTHER ==
[2017-07-23] MEDS ORDERED: GADOBUTROL 10 MMOL/10 ML VIAL IVP ONE (10:06)
--- NOTE | 2017-07-23 11:27 | MRI Preliminary Report ---
Exam: MRI Lumbar Spine W/WO IMPRESSION: 1. Multiple focal areas of abnormality identified. Lesion in L1 is similar in size, there is more damaris n she wedge-shaped compression injury and small moderate progression of residual marrow in the interv al indicating worsening of metastatic disease. 2. Focal regions of concern with abnormal enhancement at L3 and L4 are also worrisome for metastatic disease. No compression injuries. 3. L2-L3 shows mild central stenosis and mild foraminal narrowing. Hypertrophic facets and ligamenta flava noted. 4. L3-L4 central disk osteophyte complex, no central stenosis. Prominent facets, no foraminal stenosi s. 5. L4-L5 shows disk space height loss, central or foraminal stenosis. X. L5-S1 shows injuries retrogr gonsalo disk extrusion with mass effect on the thecal sac and flattening of right S1 root. This is more p rominent on the previous exam Comment: The following findings are so common in adults without low back pain that while we report th eir presence, they must be interpreted with caution and in the context of the clinical situation. (Re alyssa Jiang et al, Spine 2001) Prevalence of findings in patients without low back pain: Disk degeneration (any evidence): 92% Disk desiccation/T2 signal loss: 83% Disk height loss: 56% Disk bulge: 64% Disk protrusion: 32% Annular tear/high intensity zone: 38% [facility] SITE ID: [id number]
--- NOTE | 2017-07-23 11:55 | MRI Preliminary Report ---
Exam: MRI Sacrum/Coccyx IMPRESSION: 1. Diffuse widespread bony metastatic disease seen in the posterior iliac bones, proximal femurs and to lesser stent within the sacrum. [facility] MUSCULOSKELETAL RADIOLOGY SECTION The call report notification system was initiated by Dr. Олег Jules at 11:30 hrs on 07/23/17. The above findings were discussed with Judy KESSLER by Dr. Олег Jules at 11:53 hrs on 7. SITE ID: [id number]
--- NOTE | 2017-07-23 12:04 | MRI Report ---
EXAM: MRI SACRUM/SI JOINTS WITHOUT CONTRAST EXAM DATE: 07/23/2017 10:33 AM. CLINICAL HISTORY: Bone mets, severe back, lumbar/right sacral area. COMPARISON: None. TECHNIQUE: Multiplanar, multisequence T1-weighted and fluid-sensitive sequences of the sacrum/sacroil iac joints without contrast. Other: None. FINDINGS: Bones: Multifocal regions of abnormal low signal on T1, high signal on T2 with abnormal enhancement s een in the iliac bones and sacrum bilaterally. These multifocal areas of abnormality show no soft tis mirella mass or pathologic fractures. There is involvement of the sacrum and coccygeal segments, but to a lesser degree than the iliac bones. Sacroiliac Joints: No effusion or sacroiliitis. Right Hip: No acetabular retroversion. Femoral head/neck offset is within normal limits. No effusion. Multifocal punctate areas of similar tumor deposition seen proximal humerus. Left Hip: No acetabular retroversion. Femoral head/neck offset is within normal limits. No effusion. Multifocal regions of low signal on T1, high signal on T2 enhancement also seen in the left proximal femur. Symphysis Pubis: Unremarkable. Musculature: No edema or fatty atrophy. Neurologic Structures: The sacral neural foramina are patent, and the sacral nerve roots have normal signal intensity. The visualized sciatic nerves are unremarkable. Pelvic Cavity: The visualized bowel, bladder, and reproductive organs are unremarkable. No lymphadeno venkatesh. No free fluid in the pelvis. Other: No bursitis. The subcutaneous tissues are unremarkable. IMPRESSION: 1. 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 [facility] MUSCULOSKE[facility]IOLOG[facility] SECTION The call report notification system was initiated by Dr. Олег Jules at 11:30 hrs on 07/23/17. The above findings were discussed with Judy KESSLER by Dr. Олег Jules at 11:53 hrs on 7. Referring Provider Line: [phone] SITE ID: [id number]
--- NOTE | 2017-07-23 12:04 | MRI Report ---
EXAM: MRI LUMBAR SPINE WITHOUT AND WITH CONTRAST EXAM DATE: 07/23/2017 10:33 AM. CLINICAL HISTORY: Bone metastasis, severe back, lumbar/right sacral area. COMPARISONS: None. TECHNIQUE: Multiplanar, multisequence T1-weighted and fluid-sensitive sequences of the lumbar spine f rom T12 to S1 before and after administration of intravenous contrast. IV contrast: 8.5 mL Gadavist I V, No Reaction. Other: None. FINDINGS: Spinal Cord: The conus terminates at T12-L1. No signal abnormality in the visualized spinal cord. Alignment: Normal. No scoliosis or spondylolisthesis. Bone Marrow: Five [id number]-byzlsir lumbar vertebral bodies are assumed. Multiple focal areas of abnorm ality are identified. On today's examination, the lesion at L1 noted previously on the CT study and p revious MRI study from 01/24/2017 is similar in appearance. Mild anterior wedge-shaped deformity is s een, with loss of about 50% of vertebral body height. There has been some further progression of dise ase along the posterior margin of the L1 vertebral body. Also, abnormal signal is noted at the T11 and L3 vertebral bodies. These areas of abnormal signal are probably related to metastatic disease. There has been significant change in these locations. Disk Levels/Facets: T12-L1: Disk dehydration, annular tear and focal central protrusion with some indentation of the vent ral thecal sac. Moderate central stenosis. No foraminal narrowing. L1-L2: Broad-based disk bulge is seen. Prominent facets. Mild central stenosis, no foraminal narrowin g. L2-L3: Broad-based disk bulge, hypertrophic facets and ligamentum flavum. Mild central stenosis, no f oraminal narrowing. L3-L4: Disk/osteophyte complex, broad-based disk bulge. No central stenosis, prominent facets and no foraminal stenosis. L4-L5: Disk space height loss, broad-based bulge, prominent facets. No central or foraminal stenosis. L5-S1: Inferiorly-directed right-sided disk extrusion with mass effect on the thecal sac and flatteni ng of the right S1 root in the lateral recesses. This measures 1.7 x 1.2 cm transversely extending fo r 1.8 cm cephalocaudal extent. Please see series 601 image 3, series 401 image 11. Spinal Canal: No enhancing masses within the spinal canal. No epidural abscess. Musculature: Moderate fatty atrophy of the multifidus muscle also noted. Other: The visualized pelvic cavity is unremarkable. IMPRESSION: 1. Multiple focal areas of abnormality identified. Lesion at L1 is similar in size, there is more of an anterior wedge-shaped compression injury and small moderate progression of residual marrow in the interval indicating worsening of metastatic disease. 2. Focal regions of concern with abnormal enhancement at L3 and L4 are also worrisome for metastatic disease. No compression injuries. 3. L2-L3 shows mild central stenosis and mild neural foraminal narrowing. Hypertrophic facets and lig amenta flava noted. 4. L3-L4 central disk/osteophyte complex, no central stenosis. Prominent facets, no foraminal stenosi s. 5. L4-L5 shows disk space height loss, no central or foraminal stenosis. X. L5-S1 shows inferiorly-di rected right-sided disk extrusion with mass effect on the thecal sac and flattening of right S1 root. This is more prominent now than on the previous exam. Comment: The following findings are so common in adults without low back pain that while we report th eir presence, they must be interpreted with caution and in the context of the clinical situation. (Re alyssa Jiang et al, Spine 2001) Prevalence of findings in patients without low back pain: Disk degeneration (any evidence): 92% Disk desiccation/T2 signal loss: 83% Disk height loss: 56% Disk bulge: 64% Disk protrusion: 32% Annular tear/high intensity zone: 38% [facility] Referring Provider Line: [phone] SITE ID: [id number]
== END 2017-07-23 09:21 | disposition home or self-care (01) ==
LOC: DI 09:20
PROVIDERS: ATTEND Nurse Practitioner Adult Health
DX: C79.51 Secondary malignant neoplasm of bone (principal); M51.26 Other intervertebral disc displacement, lumbar region; M43.8X6 Other specified deforming dorsopathies, lumbar region; M51.35 Other intervertebral disc degeneration, thoracolumbar region; M51.27 Other intervertebral disc displacement, lumbosacral region; M47.896 Other spondylosis, lumbar region; M51.36 Other intervertebral disc degeneration, lumbar region
CPT/HCPCS: 72158; 72195